=== PATIENT | male | born 1940 | race Hispanic/Latino ===

== ENCOUNTER 2016-10-11 12:18 | Emergency (ER) | payer MEDICARE | END 2016-10-11 12:29 | disposition left against medical advice (07) | LOC: ED 12:18 | DX: Z53.21 Procedure and treatment not carried out due to patient leaving prior to being seen by health care provider (principal) ==

== ENCOUNTER 2017-05-30 09:24 | Outpatient (CLI) | payer MEDICARE ==
[2017-05-30 10:21] LABS: Blood Urea Nitrogen 20 mg/dL (9-20)
--- NOTE | 2017-05-30 17:05 | Cat Scan Report ---
FINAL REPORT EXAM: CT ANGIO ABDOMEN PELVIS HISTORY: ANEURYSM OF ILIAC ARTERY TECHNIQUE: Multiple sections through the abdomen after IV contrast Multiple sections through the pelvis after IV contrast CT angiographic 2D and 3D image post processing of the abdomen and pelvis. PRIORS: None. FINDINGS: Normal-appearing liver, gallbladder, adrenals, pancreas, and spleen. Normal-appearing kidneys and ureters. Very small fat containing umbilical hernia. Otherwise intact anterior abdominal wall. Normal-appearing stomach and duodenum. No small bowel distention in the abdomen and pelvis. No pelvic cul-de-sac free fluid. Normal-appearing urinary bladder, prostate, seminal vesicles, and rectum. No gross ascites, free air, or colonic distention. Normal-appearing cecum and terminal ileum as well as retrocecal appendix. Moderate sigmoid diverticulosis without definite CT evidence of acute inflammation. CTA abdominal and pelvic images demonstrate normal caliber abdominal aorta and IVC with slight calcified and noncalcified atherosclerotic changes in the aorta and its branches. Diffusely patent celiac artery and SMA. Diffusely patent left renal artery with slight plaque at the origin. Approximately 35 % diameter stenosis at the origin of the right renal artery. 2 cm diameter fusiform aneurysm at the origin of the left common iliac artery. 1.9 cm diameter fusiform aneurysm at the origin of the right common iliac artery. Nonspecific linear density in the midportion of the right common iliac artery may be intimal flap. Length is approximately 17 mm. It is noted on 2D images but not visible on 3D reconstructions. Very short-segment linear filling defect is also noted in the posterior aspect of the right superficial femoral artery proximal aspect, approximately 7 mm long. IMPRESSION: Thin intraluminal 17 mm long filling defect in the right common iliac artery may be an intimal flap, demonstrated only on 2D images. 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
== END 2017-05-30 09:25 | disposition home or self-care (01) ==
LOC: CT 09:24
PROVIDERS: ATTEND Surgery Vascular Surgery
DX: I72.3 Aneurysm of iliac artery (principal); I87.1 Compression of vein; I87.2 Venous insufficiency (chronic) (peripheral); I89.0 Lymphedema, not elsewhere classified; K42.9 Umbilical hernia without obstruction or gangrene; K57.30 Diverticulosis of large intestine without perforation or abscess without bleeding; I70.1 Atherosclerosis of renal artery
CPT/HCPCS: 36415; 74174; 82565; 84520; Q9967

== ENCOUNTER 2017-10-01 08:43 | Outpatient (CLI) | payer MEDICARE ==
--- NOTE | 2017-10-01 14:46 | Cat Scan Report ---
FINAL REPORT EXAM: CT ANGIO ABD/FEMORAL ABD AORTA HISTORY: LYMPHEDEMA, VENOUS INSUFFICIENCY TECHNIQUE: CTA of the abdomen and pelvis through the lower extremities through the toes was performed after the administration of intravenous contrast. Reconstructions were included in the coronal and sagittal planes. PRIORS: CTA of the abdomen and pelvis from 05/30/2017. FINDINGS: Lower thorax: The lung bases are clear. The visualized portions of the heart are normal. Liver: The liver is normal in attenuation. No intrahepatic biliary duct dilation. Several small hyper attenuating lesions are seen within the right hepatic lobe. These are grossly similar to the prior study. Gallbladder/ biliary system: No cholelithiasis. The common bile duct appears nondilated. Spleen: No splenic lesions are seen. Pancreas: No pancreatic lesions are seen. No pancreatic duct dilation. Kidneys: No renal masses, cysts or hydronephrosis. Adrenal glands: No adrenal masses. Vasculature: The abdominal aorta is normal in caliber. Calcified atherosclerotic plaque is again seen within the abdominal aorta and branch vessels. Atherosclerotic plaque at the origins of the renal arteries is again seen causing less than 50 percent stenosis. No evidence of abdominal aortic aneurysm or dissection. A stent has been placed in the left common iliac artery extending into the internal and external iliac arteries. The stent appears patent. Aneurysm of the left common iliac artery measures 1.7 centimeters, previously 2.0 centimeters. Aneurysm of the right common iliac artery measures 1.7 centimeters, previously 1.9 centimeters. The intimal flap within right proximal external iliac artery is unchanged. No other areas of dissection are seen. Suggestion of intimal flap within the right proximal superficial femoral artery on the prior study likely relates to calcified and noncalcified atherosclerotic plaque along the periphery of the vessel. There is calcified atherosclerotic plaque within the lower extremity arterial systems. Normal trifurcations are seen. No areas of focal stenosis or occlusion. Duplicated IVC again noted. A stent has been placed within the left distal IVC extending into the left external iliac vein. Note that this is an arterial study so patency of the stent was not assessed. Lymph nodes: No enlarged lymph nodes are seen in the abdomen or pelvis. Bowel, mesentery, peritoneum: No bowel obstruction. No free fluid or free air. The appendix is normal. Colonic diverticulosis was again seen. No bowel wall thickening. Urinary bladder: No filling defects are seen. Pelvis: Prostate gland is mildly enlarged. Abdominal wall: There is a small fat containing umbilical hernia. Bones: Degenerative changes are seen in the spine. Lower extremities: There is subcutaneous edema in the distal aspect of the left lower extremity. The osseous structures are intact. IMPRESSION: 1. Placement of a stent in the left common, internal and external iliac arteries. Decreased size of the left common iliac artery aneurysm. Patent stent. 2. Unchanged intimal flap within the right external iliac artery likely related to dissection. 3. Mild decrease in size of the right common iliac artery aneurysm measuring 1.7 centimeters, previously 1.9 centimeters. 4. Mild bilateral peripheral arterial disease without focal stenosis or vessel occlusion. 5. Placement of a stent within the distal aspect of the left IVC and left external iliac vein. Patency of the stent was not assessed given that this was an arterial study. 6. Left lower extremity soft tissue edema. 7. Unchanged small hyper attenuating right hepatic lesions which may represent flash fill hemangiomata. 8. Unchanged colonic diverticulosis. 9. Unchanged mild prostatic hypertrophy.
== END 2017-10-01 08:44 | disposition home or self-care (01) ==
LOC: CT 08:43
PROVIDERS: ATTEND Surgery Vascular Surgery
DX: I72.3 Aneurysm of iliac artery (principal); N40.0 Benign prostatic hyperplasia without lower urinary tract symptoms; K57.90 Diverticulosis of intestine, part unspecified, without perforation or abscess without bleeding; I73.9 Peripheral vascular disease, unspecified; M47.899 Other spondylosis, site unspecified; I10 Essential (primary) hypertension; E78.00 Pure hypercholesterolemia, unspecified; E03.9 Hypothyroidism, unspecified; J45.909 Unspecified asthma, uncomplicated; K21.9 Gastro-esophageal reflux disease without esophagitis; I25.10 Atherosclerotic heart disease of native coronary artery without angina pectoris
CPT/HCPCS: 75635; Q9967

== ENCOUNTER 2018-02-26 07:51 | Outpatient (CLI) | payer MEDICARE ==
--- NOTE | 2018-02-26 10:55 | Cat Scan Report ---
CT CHEST WITH AND WITHOUT CONTRAST: HISTORY: Aortic aneurysm, aortic regurgitation. COMPARISON: none. TECHNIQUE: Helical CT in 1.25mm intervals following IV contrast. Sagittal and coronal reformatted images. FINDINGS: Thyroid gland: Normal. Tracheobronchial tree: Normal. Esophagus: Normal. Heart: Borderline to mild cardiomegaly. Pericardium: Normal. Mediastinum: The thoracic aorta is mildly ectatic and dilated although no focal aneurysm is detected. The ascending aorta measures 4.1 cm in diameter. The aortic arch measures 3. 3 cm in diameter. The descending thoracic aorta measures 3.3 cm in diameter. There are scattered calcific plaques in the descending thoracic aorta but no evidence for ulceration, stenosis or dissection. No evidence for mediastinal mass or adenopathy. The central pulmonary arteries are within normal limits. Lung Hunter: Within normal limits. Pleural Spaces: Normal. Musculoskeletal: Minor thoracic spondylosis. IMPRESSION: Mildly ectatic and dilated thoracic aorta as outlined above. No focal aneurysm, stenosis or dissection is identified. Borderline to mild cardiomegaly.
== END 2018-02-26 07:52 | disposition home or self-care (01) ==
LOC: CT 07:51
PROVIDERS: ATTEND Internal Medicine Cardiovascular Disease
DX: I35.1 Nonrheumatic aortic (valve) insufficiency (principal); I72.9 Aneurysm of unspecified site; M47.894 Other spondylosis, thoracic region; E78.00 Pure hypercholesterolemia, unspecified; I10 Essential (primary) hypertension; J44.9 Chronic obstructive pulmonary disease, unspecified; K21.9 Gastro-esophageal reflux disease without esophagitis; E03.9 Hypothyroidism, unspecified
CPT/HCPCS: 36415; 71270; 82565; 84520; Q9967

== ENCOUNTER 2019-03-04 08:46 | Outpatient (CLI) | payer MEDICARE ==
--- NOTE | 2019-03-04 11:37 | Cat Scan Report ---
CTA CHEST WITH IV CONTRAST INDICATION / CLINICAL INFORMATION: AORTIC DILATATION,THORACIC AORTIC ANEURYSM. TECHNIQUE: Axial CT images were obtained through the chest after injection of IV contrast. 3 plane MIP and/or 3D reconstructions were produced. All CT scans at this location are performed using CT dose reduction f or ALARA by means of automated exposure control. COMPARISON: None available. FINDINGS: PULMONARY ARTERIES: No pulmonary emboli. THORACIC AORTA: Calcifications are present involving the aortic valve. There is slight prominence of the ascending thoracic aorta measuring 4.1 cm essentially unchanged as compared to exam. Common origi n of the innominate artery and left common carotid artery noted. Descending thoracic aorta is slightl y tortuous but normal in caliber HEART: No significant abnormality. Mild coronary calcifications are present. CORONARY ARTERIES: No significant calcification. PLEURA: No pleural effusion. No pneumothorax. LYMPH NODES: No significant adenopathy. LUNGS: No acute air space or interstitial disease. ADDITIONAL FINDINGS: None. UPPER ABDOMEN: No acute findings. SKELETAL STRUCTURES: No significant osseous abnormality. IMPRESSION: 1. Mild ectasia ascending thoracic aorta unchanged previous exam 2. Bovine arch 3. Calcified aortic valve. 4. Mild coronary artery calcifications Signer Name: Fermín Bucio MD Signed: 03/04/2019 11:32 AM Workstation Name: [id number]
== END 2019-03-04 08:47 | disposition home or self-care (01) ==
LOC: CT 08:46
PROVIDERS: ATTEND Internal Medicine Cardiovascular Disease
DX: I25.10 Atherosclerotic heart disease of native coronary artery without angina pectoris (principal); I77.810 Thoracic aortic ectasia; I70.0 Atherosclerosis of aorta; I79.0 Aneurysm of aorta in diseases classified elsewhere; I87.2 Venous insufficiency (chronic) (peripheral); Z95.5 Presence of coronary angioplasty implant and graft
CPT/HCPCS: 36415; 71275; 82565; 84520; Q9967